=== PATIENT | female | born 1975 | race Caucasian/White ===

== ENCOUNTER → 2018-09-02 | Outpatient (CLI) | payer BC ==
--- NOTE | 2018-09-02 13:44 | US ---
EXAMINATION TYPE: US abdomen complete DATE OF EXAM: 09/02/2018 COMPARISON: NONE CLINICAL HISTORY: R10.9 Abd pain. llq/pelvic pain since hysterectomy Dec 2017 EXAM MEASUREMENTS: Liver Length: 16.4 cm Gallbladder Wall: 0.2 cm CBD: 0.3 cm Spleen: 12.1 cm Right Kidney: 10.5 x 5.9 x 5.9 cm Left Kidney: 11.9 x 4.2 x 5.4 cm Pancreas: wnl Liver: wnl Gallbladder: wnl Evidence for sonographic Parker's sign: no CBD: wnl Spleen: wnl Right Kidney: wnl Left Kidney: wnl Upper IVC: wnl Abd Aorta: wnl The liver is homogenous. The intrahepatic portion of the IVC and proximal abdominal aorta are within normal limits. There is no evidence of cholelithiasis. Common bile duct is unremarkable. The visu alized portions of the pancreas are homogenous. The spleen is unremarkable. Kidneys are symmetric a nd free of hydronephrosis. No renal lesions are seen. IMPRESSION: No significant abnormality is evident
--- NOTE | 2018-09-02 13:52 | US ---
EXAMINATION TYPE: US pelvis complete transvag DATE OF EXAM: 09/02/2018 COMPARISON: Prior ultrasound 07/04/2010 is incompletely CLINICAL HISTORY: R10.9 Abd pain. LLQ pain since hysterectomy Dec 2017 TECHNIQUE: TA. Transabdominal sonographic images of the pelvis were acquired. Transvaginal sonogra phic images were medically necessary to better assess the following anatomy: cervix and bilat ovaries Date of LMP: Nov 2017 EXAM MEASUREMENTS: Uterus: Surgically absent Endometrial Stripe: Surgically absent Right Ovary: 4.2 x 3.8 x 3.7 cm Left Ovary: 2.5 x 2.3 x 1.7 cm 1. Uterus: hysterectomy, nabothian cyst seen within cervix, largest = 1.0cm 2. Endometrium: Surgically absent 3. Right Ovary: 3.6cm complex cyst seen, internal echoes are noted, color flow noted peripherally 4. Left Ovary: follicles seen 5. Bilateral Adnexa: wnl 6. Posterior cul-de-sac: wnl IMPRESSION: Postop changes. Cystic focus associated with the right ovary is indeterminate, follow-up suggested, consider hemorrhagic cyst, endometrioma
== END | disposition home or self-care (01) ==
LOC: RADUSWWP 06:48
PROVIDERS: ATTEND Family Medicine
DX: N83.201 Unspecified ovarian cyst, right side (principal); Z90.710 Acquired absence of both cervix and uterus
CPT/HCPCS: 76700; 76830; 76856

== ENCOUNTER → 2024-12-03 | Outpatient (CLI) | payer OTHER ==
[2024-12-03 15:40] LABS: Basophils # (A) 0.03 X 10*3/uL (0.00-0.10); Basophils % (A) 0.6 %; Eosinophils # (A) 0.01 X 10*3/uL (0.04-0.35); Eosinophils % (A) 0.2 %; HCT 43.6 % (37.2-46.3); HGB 14.3 g/dL (12.0-15.0); Lymphocytes # (A) 2.03 X 10*3/uL (0.90-5.00); MCH 29.4 pg (27.0-32.0); MCHC 32.8 g/dL (32.0-37.0); MCV 89.7 FL (80.0-97.0); Mean Platelet Volume 9.6 FL (9.5-12.2); Monocytes # (A) 0.44 X 10*3/uL (0.20-1.00); Monocytes % (A) 9.3 %; NRBC Per 100 WBC 0 X 10*3/uL (0.00-0.01); Neutrophils % (A) 46.7 %; Platelet Count 333 X 10*3/uL (140-440); RBC 4.86 X 10*6/uL (4.10-5.20); RDW 13.2 % (11.5-14.5); WBC 4.72 X 10*3/uL (4.50-10.00)
[2024-12-03 16:07] LABS: ALT 17 U/L (8-44); AST 14 U/L (13-35); Albumin 4.1 g/dL (3.8-4.9); Albumin/Globulin Ratio 1.86 Ratio (1.60-3.17); Alkaline Phosphatase 63 U/L (41-126); Blood Urea Nitrogen 9.6 mg/dL (9.0-27.0); Calcium 9.1 mg/dL (8.7-10.3); Carbon Dioxide 25.6 mmol/L (21.6-31.8); Chloride 108 mmol/L (96-109); Chol/HDL Ratio 2.96 Ratio; Globulin 2.2 g/dL (1.6-3.3); Glucose 109 mg/dL (70-110); LDL Cholesterol,Calculated 113.3 mg/dL (0.0-131.0); Potassium 4.1 mmol/L (3.5-5.5); Sodium 142 mmol/L (135-145); T4, Free (Free Thyroxine) 1.22 ng/dL (0.80-1.80); Total Bilirubin 0.7 mg/dL (0.3-1.2); Total Protein 6.3 g/dL (6.2-8.2); VLDL Calculation 12.62 mg/dL (5.00-40.00)
== END | disposition home or self-care (01) ==
LOC: LABWHC1 11:04
DX: Z00.00 Encounter for general adult medical examination without abnormal findings (principal); F41.8 Other specified anxiety disorders; Z79.899 Other long term (current) drug therapy
CPT/HCPCS: 36415; 80053; 80061; 82306; 84439; 84443; 85025

== ENCOUNTER → 2024-12-08 | Outpatient (CLI) | payer OTHER ==
--- NOTE | 2024-12-08 14:28 | USB ---
Reason for Exam: Clinical finding. Patient History: Menarche at age 16. First Full-Term at age 21. Hysterectomy at age 42. Maternal aunt had breast cancer, age 29. Risk Values: Rachna 5 year model risk: 0.7%. NCI Lifetime model risk: 7.6%. Technique: Method: Targeted. Findings: The upper outer quadrant of the left breast, the axilla of both breasts and the retroareolar of both breasts were scanned. Technique utilized:US breast limited BILAT Image; Ultrasound imaging of: All 4 quadrants, the retroareolar region and axilla. Right breast 12:00 3 cm from the nipple possible correlating with finding on mammography however the distance is not exactly seen. Short-term follow-up ultrasound and mammography recommended for this lesion in 3 months. This is felt to represent clustered cysts. Area measures up to 12 x 10 x 5 mm. Left breast palpable abnormality correlating with suspected dense fibroglandular tissue. This is somewhat asymmetric on mammography. Follow-up 3 months recommended for this area. This is felt to represent dense fibroglandular tissue however there are cystic changes within this area. This area measures up to 5.7 x 2.0 cm. Overall Assessment: Probably benign, BI-RAD 3 Management: Diagnostic Mammogram of both breasts in 3 months. Diagnostic Breast Ultrasound of both breasts in 3 months. A clinical breast exam by your physician is recommended on an annual basis and results should be correlated with mammographic findings. This exam should not preclude additional follow-up of suspicious palpable abnormalities. Results were given to the patient verbally at the time of exam. [facility], , 12/08/2024 2:25 PM. Electronically signed and approved by: Washington Hilton DO
--- NOTE | 2024-12-08 14:29 | MM ---
Reason for Exam: Clinical finding. Patient History: Menarche at age 16. First Full-Term at age 21. Hysterectomy at age 42. Maternal aunt had breast cancer, age 29. Risk Values: Rachna 5 year model risk: 0.7%. NCI Lifetime model risk: 7.6%. Tissue Density: There are scattered areas of fibroglandular density. Findings: Analyzed By CAD. Left: Palpable mass left breast upper outer quadrant possibly measuring 61 x 35 mm 8.6 cm from the nipple. Right: Irregular shaped masslike area with calculi at 10 cm from the nipple posterior nipple line on RCC view slightly superior on MLO suggesting around 12:00. Overall Assessment: Incomplete: need additional imaging evaluation, BI-RAD 0 Management: Diagnostic Breast Ultrasound of both breasts. Results were given to the patient verbally at the time of exam. Patient should continue monthly self-breast exams. A clinical breast exam by your physician is recommended on an annual basis. This exam should not preclude additional follow-up of suspicious palpable abnormalities. Note on Rachna scores and lifetime risk: 1. A Rachna score greater than 3% is considered moderate risk. If this is the case, consider specialist referral to assess eligibility for a risk reducing agent. 2. If overall lifetime risk for the development of breast cancer is 20% or higher, the patient may qualify for future screening with alternating mammogram and breast MRI. [facility], , 12/08/2024 1:41 PM. Electronically signed and approved by: Washington Hilton DO
== END | disposition home or self-care (01) ==
LOC: RADMAMWWP 12:43
PROVIDERS: ATTEND Family Medicine
DX: R92.2 Inconclusive mammogram (principal); R92.323 Mammographic fibroglandular density, bilateral breasts; Z80.3 Family history of malignant neoplasm of breast
CPT/HCPCS: 77062; 77066